=== PATIENT | female | born 1970 | race Caucasian/White ===

== ENCOUNTER 2019-06-06 13:00 | Emergency (ER) | payer SELFPAY ==
--- NOTE | 2019-06-06 13:30 | EDM.PDOC ---
ED HPI GENERAL MEDICAL PROBLEM - General Chief Complaint: General Stated Complaint: MOUTH COMPLAINT AND DIZZY Time Seen by Provider: 06/06/19 13:25 Source of Information: Reports: Patient History Limitations: Reports: No Limitations - History of Present Illness INITIAL COMMENTS - FREE TEXT/NARRATIVE: HISTORY AND PHYSICAL: History of present illness: Patient is a 48-year-old female presents to the ED with complaint of dental abscess and dizziness. She states she has been dizzy when she stands up for the past week. She reports that 4 days ago she woke up with severe tooth pain. She states she developed a large bump in the gums of the upper teeth. She denies fevers, chills, nausea, vomiting, abdominal pain, diarrhea, chest pain, shortness of breath, headache, head injury, visual disturbances. She is also complaining of wind burn to her face, states she is not from here and is not use to the cold. She was exposed to wind a couple of days ago and developed redness on her cheeks that is slightly tender to palpation. Review of systems: As per history of present illness and below otherwise all systems reviewed and negative. Past medical history: As per history of present illness and as reviewed below otherwise noncontributory. Surgical history: As per history of present illness and as reviewed below otherwise noncontributory. Social history: No reported history of drug or alcohol abuse. Family history: As per history of present illness and as reviewed below otherwise noncontributory. Physical exam: General: Patient sitting comfortably in no acute distress and nontoxic appearing HEENT: Poor dentition throughout. There is a 0.5cm abscess to the gums of the upper central incisors. Atraumatic, normocephalic, pupils reactive, negative for conjunctival pallor or scleral icterus, mucous membranes moist, throat clear , neck supple, nontender, trachea midline. No meningeal signs. Lungs: Clear to auscultation, breath sounds equal bilaterally, chest nontender. Heart: S1S2, regular, negative for clicks, rubs, or overt murmur. Abdomen: Soft, nondistended, nontender. Negative for masses or hepatosplenomegaly. Negative for costovertebral tenderness. No rigidity, rebound , guarding. Pelvis: Stable nontender. Genitourinary: Deferred. Rectal: Deferred. Extremities: Atraumatic, negative for cords or calf pain. Neurovascular unremarkable. Neuro: Awake, alert, oriented. Cranial nerves II through XII unremarkable. Cerebellum unremarkable. Motor and sensory unremarkable throughout. Exam nonfocal. Notes: Diagnostics: EKG, orthostatic vital signs Therapeutics: Toradol 60mg IM Prescriptions: Clindamycin Impression: Dental abscess Dizziness Plan: Take antibiotic as instructed Follow up with dentist and primary care provider Return to ED as needed as discussed Definitive disposition and diagnosis as appropriate pending reevaluation and review of above. Gums Pain Score (Numeric/FACES): 6 - Related Data Allergies Allergy/AdvReac Type Severity Reaction Status Date / Time tramadol Allergy Headache Verified 06/06/19 13:10 Home Meds: Home Meds Amoxicillin 500 mg PO TID 06/06/19 [History] Clindamycin HCl 300 mg PO TID 10 Days #30 capsule 06/06/19 [Rx] ClonazePAM [KlonoPIN] 2 mg PO BID PRN 06/06/19 [History] Ibuprofen 800 mg PO 06/06/19 [History] Metoprolol Tartrate 25 mg PO 06/06/19 [History] Pravastatin [Pravachol] 80 mg PO BEDTIME 06/06/19 [History] Past Medical History Cardiovascular History: Reports: High Cholesterol, Hypertension - Past Surgical History Other HEENT Surgeries/Procedures: TOOTHE PAIN Social & Family History - Family History Family Medical History: Noncontributory - Tobacco Use Smoking Status *Q: Never Smoker - Recreational Drug Use Recreational Drug Use: No ED ROS GENERAL - Review of Systems Review Of Systems: ROS reveals no pertinent complaints other than HPI. ED EXAM, GENERAL - Physical Exam Exam: See Below (see dictation) Course - Vital Signs Last Recorded V/S: Last Vital Signs Temp 97.6 F 06/06/19 13:14 Pulse 101 H 06/06/19 13:14 Resp 16 06/06/19 13:14 BP 163/116 H 06/06/19 13:14 Pulse Ox 94 L 06/06/19 13:14 Orthostatic Blood Pressure [] 164/103 Orthostatic Blood Pressure [] 147/103 Orthostatic Blood Pressure [] 131/78 - Orders/Labs/Meds Orders: Active Orders 24 hr Category Date Time Status EKG 12 Lead [EKG Documentation Completion] [RC] STAT Care 06/06/19 13:13 Active Orthostatic Vital Signs [RC] ASDIRECTED Care 06/06/19 13:30 Active Ketorolac [Toradol] Med 06/06/19 13:55 Once 60 mg IM ONETIME ONE Departure - Departure Time of Disposition: 13:55 Disposition: Home, Self-Care 01 Condition: Good Clinical Impression: Dental abscess, Dizziness - Discharge Information Referrals: PCP,Not In Area [Primary Care Provider] - Forms: ED Department Discharge Additional Instructions: The following information is given to patients seen in the emergency department who are being discharged to home. This information is to outline your options for follow-up care. We provide all patients seen in our emergency department with a follow-up referral. The need for follow-up, as well as the timing and circumstances, are variable depending upon the specifics of your emergency department visit. If you don't have a primary care physician on staff, we will provide you with a referral. We always advise you to contact your personal physician following an emergency department visit to inform them of the circumstance of the visit and for follow-up with them and/or the need for any referrals to a consulting specialist. The emergency department will also refer you to a specialist when appropriate. This referral assures that you have the opportunity for follow-up care with a specialist. All of these measure are taken in an effort to provide you with optimal care, which includes your follow-up. Under all circumstances we always encourage you to contact your private physician who remains a resource for coordinating your care. When calling for follow-up care, please make the office aware that this follow-up is from your recent emergency room visit. If for any reason you are refused follow-up, please contact the [facility] at and asked to speak to the emergency department charge nurse. [facility] [address] [place] [id number] [id number] Take antibiotic as instructed Follow up with dentist and primary care provider Return to ED as needed as discussed - My Orders Last 24 Hours: My Active Orders 06/06/19 13:13 EKG 12 Lead [EKG Documentation Completion] [RC] STAT 06/06/19 13:30 Orthostatic Vital Signs [RC] ASDIRECTED 06/06/19 13:55 Ketorolac [Toradol] 60 mg IM ONETIME ONE - Assessment/Plan Last 24 Hours: My Active Orders 06/06/19 13:13 EKG 12 Lead [EKG Documentation Completion] [RC] STAT 06/06/19 13:30 Orthostatic Vital Signs [RC] ASDIRECTED 06/06/19 13:55 Ketorolac [Toradol] 60 mg IM ONETIME ONE
[2019-06-06] MEDS ORDERED: Ketorolac 60 MG/2 ML SDV IM ONE (13:55)
[2019-06-06] MEDS ORDERED: Lidocaine 2% Viscous Solution 15 ML Cup PO ONE (14:13)
[2019-06-06] MEDS ORDERED: Benzocaine 20% Topical Spray UD MUCMEM ONE (14:13)
== END 2019-06-06 14:26 | disposition home or self-care (01) ==
LOC: MW.ED 13:00
DX: K04.7 Periapical abscess without sinus (principal); R42 Dizziness and giddiness; I10 Essential (primary) hypertension; E78.00 Pure hypercholesterolemia, unspecified; Z79.899 Other long term (current) drug therapy; Z88.5 Allergy status to narcotic agent
CPT/HCPCS: 93005; 96372; 99284; A9270; J1885